=== PATIENT | male | born 1985 | race Hispanic/Latino ===

== ENCOUNTER 2023-11-18 23:10 | Emergency (ER) | payer OTHER ==
[2023-11-18] MEDS ORDERED: Fluorescein Opthalmic Strip ONE (23:58)
[2023-11-18] MEDS ORDERED: Tetracaine 0.5% PF 4 ML BOT ONE (23:58)
== END 2023-11-19 08:17 | disposition home or self-care (01) ==
LOC: MADERS 23:10
DX: T15.92XA Foreign body on external eye, part unspecified, left eye, initial encounter (principal); I10 Essential (primary) hypertension
CPT/HCPCS: 99283